=== PATIENT | male | born 1955 | race American Indian/Alaskan Native ===

== ENCOUNTER 2021-12-29 09:27 | Emergency (ER) | payer SELFPAY ==
--- NOTE | 2021-12-29 09:34 | Emergency Department Report ---
ED General Adult HPI - General Chief complaint: Extremity Injury, Lower Stated complaint: SORE ON FOOT Time Seen by Provider: 12/29/21 09:32 Source: EMS Mode of arrival: Stretcher Limitations: No Limitations - History of Present Illness Initial comments: Patient presents by ambulance secondary to the fact that he is homeless. EMS states that they were called because he was kicked out of his current living situation. He told the ambulance staff that he wanted to go someplace where he could be warm and be out of the cold. He had not had any specific complaints to them. He did complain to the first responders of a blister on his toe. They dressed this. Patient tells me that he has a blister on his toe and a blister on his finger. This is on the right hand and right foot. Is been present "for years." He has no other complaints and no injuries. - Related Data Allergies Allergy/AdvReac Type Severity Reaction Status Date / Time No Known Allergies Allergy Verified 12/29/21 09:32 ED Review of Systems ROS: Stated complaint: SORE ON FOOT Other details as noted in HPI Comment: All other systems reviewed and negative Constitutional: denies: fever Eyes: denies: vision change ENT: denies: epistaxis Respiratory: denies: cough Cardiovascular: denies: chest pain Endocrine: denies: unexplained weight loss Gastrointestinal: denies: abdominal pain Genitourinary: denies: dysuria Musculoskeletal: denies: back pain Skin: denies: rash Neurological: denies: headache Hematological/Lymphatic: denies: easy bruising ED Past Medical Hx - Past Medical History Previous Medical History?: No - Family History Family history: no significant ED Physical Exam - General Limitations: No Limitations, Other (Pulse ox noted and normal) General appearance: alert, in no apparent distress, other (Disheveled and unkempt) - Head Head exam: Present: atraumatic, normocephalic - Eye Eye exam: Present: normal appearance, EOMI - ENT ENT exam: Present: normal orophraynx, normal external ear exam - Neck Neck exam: Present: normal inspection. Absent: meningismus - Respiratory Respiratory exam: Present: normal lung sounds bilaterally. Absent: respiratory distress - Cardiovascular Cardiovascular Exam: Present: regular rate, normal rhythm - GI/Abdominal GI/Abdominal exam: Present: soft. Absent: distended - Extremities Exam Extremities exam: Present: normal capillary refill, other (Patient has a blister to the medial aspect of the right great toe and a blister to the dorsum of the right ring finger. There is no associated warmth or erythema or drainage). Absent: pedal edema - Back Exam Back exam: Present: full ROM - Neurological Exam Neurological exam: Present: alert, oriented X3, CN II-XII intact, normal gait. Absent: motor sensory deficit - Psychiatric Psychiatric exam: Present: normal affect, normal mood - Skin Skin exam: Present: warm, dry ED Course Vital Signs 12/29/21 09:34 Temperature 98.6 F Pulse Rate 85 Respiratory 16 Rate Blood Pressure 140/82 [Right] O2 Sat by Pulse 98 Oximetry - Reevaluation(s) Reevaluation #1: 12/29/21 10:46 EMS was met upon arrival and the patient was discharged ED Medical Decision Making - Medical Decision Making Patient presents by ambulance basically for blisters that are chronic on his digits. There is no evidence of secondary infection. He denies polydipsia or polyuria that would suggest diabetes. He does not appear to be toxic. He has no other complaint that would require medical evaluation. Patient was discharged. Critical Care Time: No Critical care attestation.: If time is entered above; I have spent that time in minutes in the direct care of this critically ill patient, excluding procedure time. ED Disposition Clinical Impression: Blister of left great toe Qualifiers: Encounter type: initial encounter Qualified Code(s): S90.422A - Blister (nonthermal), left great toe, initial encounter Blister of finger Qualifiers: Encounter type: initial encounter Qualified Code(s): S60.429A - Blister (nonthermal) of unspecified finger, initial encounter Disposition: HOME / SELF CARE / HOMELESS Is pt being admited?: No Condition: Stable Additional Instructions: Keep the wounds clean. Apply dry dressings. Return for problems. Follow-up with a primary care physician. Referrals: JENIFER LOPEZ MD [Primary Care Provider] - 3-5 Days YONG ROMERO MD [Staff Physician] - 3-5 Days
[2021-12-29 09:35] VITALS: BP 140/82
== END 2021-12-29 09:40 | disposition home or self-care (01) ==
LOC: ED 09:27
DX: S90.422A Blister (nonthermal), left great toe, initial encounter (principal); S60.429A Blister (nonthermal) of unspecified finger, initial encounter; X58.XXXA Exposure to other specified factors, initial encounter; Y93.89 Activity, other specified; Y92.89 Other specified places as the place of occurrence of the external cause; Y99.8 Other external cause status
CPT/HCPCS: 99283